=== PATIENT | male | born 1985 | race Caucasian/White ===

== ENCOUNTER 2018-06-26 18:41 | Emergency (ER) | payer MEDICAID, OTHER ==
[~2018-06-26] VITALS: Ht 170.2 cm; Wt 87.3 kg
[2018-06-26 19:45] LABS: BASOPHILS # (AUTO) 0.1 X10'3 (0-0.2); BASOPHILS % (AUTO) 0.8 % (0-1); EOSINOPHILS # (AUTO) 0.1 X10'3 (0-0.9); EOSINOPHILS % (AUTO) 1.3 % (0-6); HEMATOCRIT 44.5 % (42.0-52.0); HEMOGLOBIN 15.4 g/dl (14.0-17.9); LYMPHOCYTES # (AUTO) 3.4 X10'3 (1.1-4.8); LYMPHOCYTES % (AUTO) 40.8 % (21-51); MEAN CORPUSCULAR HEMOGLOBIN 29.4 PG (27.0-31.0); MEAN CORPUSCULAR HGB CONC 34.6 g/dL (33.0-36.5); MEAN CORPUSCULAR VOLUME 85.1 FL (78-98); MEAN PLATELET VOLUME 7.8 FL (7.4-10.4); MONOCYTES # (AUTO) 0.6 X10'3 (0-0.9); MONOCYTES % (AUTO) 7.3 % (2-12); NEUTROPHILS # (AUTO) 4.2 X10'3 (1.8-7.7); NEUTROPHILS % (AUTO) 49.8 % (42-75); PLATELET COUNT 260 X10'3 (140-440); RED BLOOD COUNT 5.23 X10'6 (4.70-6.10); RED CELL DISTRIBUTION WIDTH 13.2 % (11.5-14.5); WHITE BLOOD COUNT 8.4 X10'3 (4.5-11.0)
[2018-06-26 19:54] LABS: ALANINE AMINOTRANSFERASE 46 U/L (12-78); ALBUMIN 4.2 G/DL (3.4-5.0); ALBUMIN/GLOBULIN RATIO 1.1 (1.1-1.5); ALKALINE PHOSPHATASE 61 IU/L (46-116); ANION GAP 8 (8-16); ASPARTATE AMINO TRANSFERASE 27 U/L (10-37); BILIRUBIN,TOTAL 0.7 MG/DL (0.1-1.0); BLOOD UREA NITROGEN 15 MG/DL (7-18); BUN/CREATININE RATIO 17.9 (5.4-32.0); CALCIUM 9.8 MG/DL (8.5-10.1); CHLORIDE 104 MMOL/L (99-107); CREATININE 0.84 MG/DL (0.60-1.10); GLUCOSE 112 MG/DL (70-104); LIPASE 770 U/L (73-393); POTASSIUM 3.9 MMOL/L (3.5-5.1); SODIUM 141 MMOL/L (135-145); TOTAL CARBON DIOXIDE 29.2 MMOL/L (24-32); eGFR > 90 ML/MIN
[2018-06-26 19:59] LABS: PROTHROMBIN TIME 10.1 SECONDS (9.0-12.0)
[2018-06-26 21:38] LABS: CLARITY,URINE CLEAR (Clear); COLOR,URINE YELLOW (Yellow); GLUCOSE, URINE NEGATIVE (Neg); KETONES,URINE NEGATIVE (Neg); LEUKOCYTE ESTERASE ,URINE NEGATIVE (Neg); NITRITES, URINE NEGATIVE (Neg); OCCULT BLOOD,URINE NEGATIVE (Neg); PROTEIN,URINE NEGATIVE (Neg); UROBILINOGEN,URINE 0.2 E.U/dL (0.2-1.0)
[2018-06-26 21:39] LABS: UA COLLECTION TYPE CLN CATCH MIDSTREAM
[2018-06-26] MEDS ORDERED: HYDROcodone/acetaminophen 10/325mg tab PO ONE (22:20)
[2018-06-26] MEDS ORDERED: SUCR1ORA12 PO (22:21)
[2018-06-26] MEDS ORDERED: HYDR-4353 PO (22:21)
[2018-06-26] MEDS ORDERED: LIDOcaine Viscous 15ml cup MM STA (22:56)
[2018-06-26] MEDS ORDERED: sucralfate 1gm/10ml UD suspension PO STA (22:56)
[2018-06-26] MEDS ORDERED: mag hydrox/Alum hydrox/simeth 30ml oral suspension PO ONE (23:00)
[2018-06-26] MEDS ORDERED: famotidine 20mg tablet PO ONE (23:00)
[2018-06-27 00:01] VITALS: BP 133/65
== END 2018-06-27 00:07 | disposition home or self-care (01) ==
LOC: ER 18:48
DX: R10.12 Left upper quadrant pain (principal); Z60.2 Problems related to living alone
CPT/HCPCS: 36415; 80053; 81003; 83690; 85025; 85610; 99284

== ENCOUNTER 2018-12-10 10:46 | Day surgery (SDC) | payer BC, MEDICAID ==
[2018-12-10] VITALS (9 sets, daily range): BP systolic 120–161; BP diastolic 65–82
[~2018-12-10] VITALS: Ht 167.6 cm; Wt 84.0 kg
[~2018-12-10 10:46] MED LIST: SUCR1ORA12 PO
[2018-12-10] MEDS ORDERED: famotidine 20mg tablet PO ONE (11:30)
[2018-12-10] MEDS ORDERED: ceFOXitin 2 GM ADDvantage bag 100 ML IV ONE (11:30)
[2018-12-10] MEDS ORDERED: ringers solution, lacted 1,000 ML IV SCH ×2 (11:30→13:24)
[2018-12-10 11:34] LABS: BASOPHILS % (AUTO) 0.6 % (0-1); EOSINOPHILS % (AUTO) 0.4 % (0-6); LYMPHOCYTES # (AUTO) 2.2 X10'3 (1.1-4.8); MEAN CORPUSCULAR HEMOGLOBIN 30.3 PG (27.0-31.0); MEAN CORPUSCULAR HGB CONC 35.3 g/dL (33.0-36.5); MEAN CORPUSCULAR VOLUME 85.9 FL (78-98); MEAN PLATELET VOLUME 7.7 FL (7.4-10.4); MONOCYTES # (AUTO) 0.5 X10'3 (0-0.9); MONOCYTES % (AUTO) 7.5 % (2-12); NEUTROPHILS # (AUTO) 3.8 X10'3 (1.8-7.7); NEUTROPHILS % (AUTO) 58.5 % (42-75); PRE OP HEMATOCRIT 43.2 % (42.0-52.0); PRE OP HEMOGLOBIN 15.2 g/dL (14.0-17.9); PRE OP PLATELET COUNT 248 X10'3 (140-440); RED BLOOD COUNT 5.03 X10'6 (4.70-6.10); RED CELL DISTRIBUTION WIDTH 12.8 % (11.5-14.5)
[2018-12-10 11:53] LABS: ALBUMIN 4.3 G/DL (3.4-5.0); ALBUMIN/GLOBULIN RATIO 1.2 (1.1-1.5); ALKALINE PHOSPHATASE 61 IU/L (46-116); BLOOD UREA NITROGEN 10 MG/DL (7-18); BUN/CREATININE RATIO 12.7 (5.4-32.0); CALCIUM 9.1 MG/DL (8.5-10.1); CHLORIDE 106 MMOL/L (99-107); CREATININE 0.79 MG/DL (0.60-1.10); PRE OP ALT 28 U/L (30-65); PRE OP ANION GAP 10 (8-16); PRE OP AST 15 U/L (10-37); PRE OP BILIRUB, TOTAL 1.6 MG/DL (0.0-1.0); PRE OP GLUCOSE 104 MG/DL (70-104); PRE OP POTASSIUM 3.6 MMOL/L (3.4-5.1); PRE OP SODIUM 141 MMOL/L (135-145); TOTAL CARBON DIOXIDE 25.2 MMOL/L (24-32); TOTAL PROTEIN 7.9 G/DL (6.4-8.2); eGFR > 90 ML/MIN
[2018-12-10] MEDS ORDERED: PANT-47 PO (12:18)
[2018-12-10] MEDS ORDERED: meperidine/PF 25mg/ml syringe IV PRN ×3 (13:25)
[2018-12-10] MEDS ORDERED: ondansetron/PF 4mg/2ml inj IV PRN (13:25)
[2018-12-10] MEDS ORDERED: morphine 4 MG/ML inj SYRINge IV PRN ×2 (13:25)
[2018-12-10] MEDS ORDERED: proCHLORperazine 10 MG/2 ml inj IV PRN (13:25)
[2018-12-10] MEDS ORDERED: bupivacaine (with preservative) 5 mg/ml inj. 50ml IJ ONE (14:30)
[2018-12-10] MEDS ORDERED: ceFAZolin 1000mg inj IR ONE (14:30)
--- NOTE | 2018-12-10 14:55 | NUR ---
Received from OR via BED , accompanied by Anesthesiologist DR MATIAS and report given by Anesthesiolgist. PATIENT WAKING UP, DENIES EMAR, V/S WNL, NEUROVASCULAR CHECKS INTACT, 20G PIV RUE, SCD ON, BANDAIDS TO LAP SIGHTS OF ABDOMEN CDI.
--- NOTE | 2018-12-10 16:05 | NUR ---
PATIENT A&OX4, DENIES PAIN, V/S WNL, NEUROVASCULAR CHECKS INTACT, 20G PIV RUE D/C, SCD OFF, BANDAIDS TO LAP SIGHTS OF ABDOMEN CDI. I HAVE REVIEWED D/C INSTRUCTIONS WITH PATIENT AND FRIEND AND THEY HAVE VERBALIZED UNDERSTANDING. PATIENT D/C HOME WITH ALL BELONGINGS AND FRIEND GAVE TRANSPORT HOME.
[2018-12-11] MEDS ORDERED: ringers solution, lacted 1,000 ML IV SCH (05:00)
[2018-12-11] MEDS ORDERED: famotidine 20mg tablet PO ONE (05:30)
[2018-12-11] MEDS ORDERED: ceFOXitin 2 GM ADDvantage bag 100 ML IV ONE (05:30)
== END 2018-12-10 16:05 | disposition home or self-care (01) ==
LOC: PAS 10:46
PROVIDERS: ATTEND Surgery
DX: K80.10 Calculus of gallbladder with chronic cholecystitis without obstruction (principal); K82.8 Other specified diseases of gallbladder; F17.210 Nicotine dependence, cigarettes, uncomplicated; K21.9 Gastro-esophageal reflux disease without esophagitis; Z79.899 Other long term (current) drug therapy
CPT/HCPCS: 36415; 47562; 80053; 85025; J0690; J0694; J1100; J1885; J2001; J2175; J2250; J2405; J2704; J3010; J3490; J7120; A4215; A4618; A7000